=== PATIENT | female | born 1935 | race Caucasian/White ===

== ENCOUNTER 2019-09-16 08:24 | Day surgery (SDC) | payer MEDICARE, OTHER ==
[~2019-09-16 08:24] MED LIST: CEFAZOLIN SODIUM 2 GM in DEXTROSE 5%-WATER 100 ML IV PRN; SUCCINYLCHOLINE CHLORIDE INJ 200 MG/10 ML VIAL ONE
[2019-09-16 08:56] LABS: HEMATOCRIT 46.2 % (36.0-47.0); HEMOGLOBIN 15.3 g/dL (12.0-15.5); MEAN CORPUSCULAR HEMOGLOBIN 30.4 pg (27.0-33.4); MEAN CORPUSCULAR VOLUME 92 fl (80-97); PLATELET COUNT 203 10^3/uL (150-450); RED BLOOD COUNT 5.01 10^6/uL (3.72-5.28); RED CELL DISTRIBUTION WIDTH 14.8 % (11.5-14.0); WHITE BLOOD COUNT 8.3 10^3/uL (4.0-10.5)
--- NOTE | 2019-09-16 09:19 | RADIOLOGY REPORT (SQ) ---
EXAM DESCRIPTION: CHEST SINGLE VIEW COMPLETED DATE/TIME: 09/16/2019 9:08 am REASON FOR STUDY: preop COMPARISON: None. EXAM PARAMETERS: NUMBER OF VIEWS: One view. TECHNIQUE: Single frontal radiographic view of the chest acquired. RADIATION DOSE: NA LIMITATIONS: None. FINDINGS: LUNGS AND PLEURA: No opacities, masses or pneumothorax. No pleural effusion. MEDIASTINUM AND HILAR STRUCTURES: No masses. Contour normal. HEART AND VASCULAR STRUCTURES: Heart normal in size. Normal vasculature. BONES: No acute findings. HARDWARE: Cardiac loop recorder overlies the left lateral chest wall. OTHER: No other significant finding. IMPRESSION: NO ACUTE RADIOGRAPHIC FINDING IN THE CHEST. TECHNICAL DOCUMENTATION: JOB ID: [id number] [employer]- All Rights Reserved Reading location - IP/workstation name: [email or web address]
[2019-09-16 09:21] LABS: ANION GAP 12 (5-19); BLOOD UREA NITROGEN 18 mg/dL (7-20); CALCIUM 9.7 mg/dL (8.4-10.2); CARBON DIOXIDE 24 mmol/L (22-30); CHLORIDE 105 mmol/L (98-107); GLUCOSE 161 mg/dL (75-110); POTASSIUM 4.1 mmol/L (3.6-5.0)
[2019-09-16 09:26] LABS: INTERNATIONAL RATION (INR) 1.05; PROTHROMBIN TIME 13.8 SEC (11.4-15.4)
[2019-09-16 10:55] LABS: APPEARANCE,URINE SLIGHTLY-CLOUDY; BILIRUBIN,URINE NEGATIVE (NEGATIVE); COLOR,URINE YELLOW; GLUCOSE, URINE NEGATIVE (NEGATIVE); KETONES,URINE NEGATIVE (NEGATIVE); LEUKOCYTE ESTERASE,URINE NEGATIVE (NEGATIVE); NITRITE,URINE NEGATIVE (NEGATIVE); PROTEIN,URINE NEGATIVE (NEGATIVE); URINE SPECIFIC GRAVITY 1.017; UROBILINOGEN,URINE NEGATIVE mg/dL (<2.0)
[2019-09-16] MEDS ORDERED: FENTANYL CITRATE INJ/PF 100 MCG/2 ML AMPUL ONE (10:56)
[2019-09-16] MEDS ORDERED: MIDAZOLAM 2 MG/2 ML INJ ONE (10:56)
[2019-09-16] MEDS ORDERED: ONDANSETRON HCL INJ/PF 4 MG/2 ML SDV ONE ×2 (10:56→15:03)
[2019-09-16] MEDS ORDERED: DEXAMETHASONE SOD PHOSPHATE INJ 4 MG/1 ML VIAL ONE (10:56)
[2019-09-16] MEDS ORDERED: PROPOFOL INJ 200 MG/20 ML VIAL IV ONE (10:57)
[2019-09-16] MEDS ORDERED: HYDROMORPHONE HCL INJ/PF 2 MG/ML AMPULE ONE (10:57)
[2019-09-16] MEDS ORDERED: LIDOCAINE 1% INJ-PF (10 MG/ML) 30 ML SDV ONE (11:06)
[2019-09-16] MEDS ORDERED: BUPIVACAINE HCL 0.5 % INJ/PF 30 ML SDV ONE (11:06)
[2019-09-16] MEDS ORDERED: DIPHENHYDRAMINE HCL 50 MG/ML VIAL IV PRN (11:51)
[2019-09-16] MEDS ORDERED: PROMETHAZINE HCL INJ 25 MG/1 ML VIAL IV PRN (11:51)
[2019-09-16] MEDS ORDERED: MEPERIDINE HCL/PF INJ 25 MG/1 ML DISP.SYRIN IV PRN (11:51)
[2019-09-16] MEDS ORDERED: FENTANYL CITRATE INJ/PF 100 MCG/2 ML AMPUL IV PRN ×3 (11:51)
[2019-09-16] MEDS ORDERED: MORPHINE SULFATE 10 MG/ML INJ IV PRN (13:01)
[2019-09-16] MEDS ORDERED: OXYCODONE-ACETAMINOPHEN 5-325 MG TABLET PO PRN (13:01)
--- NOTE | 2019-09-16 13:02 | Discharge Summary ---
Discharge Summary (SDC) - Discharge Final Diagnosis: Left Recurrent Carpal Tunnel Syndrome/Median Neuropathy Date of Surgery: 09/16/19 Discharge Date: 09/16/19 Condition: Good Treatment or Instructions: Schedule Follow Up w/ Dr. Donovan España @ [facility] to be seen in 10-14 days or as scheduled [place]: [place]: [place]: Ice and elevate Keep splint clean/dry/intact, do not remove. If your fingers become numb please unwrap the Girish wrap but leave the splint in place, if the sensation does not return within 30 minutes please return to the emergency department. May begin finger range of motion attempting to make full fist. Please use ibuprofen (Motrin or Advil) 600-800 mg every 8 hours as needed for pain or fever DO NOT TAKE w/ TORADOL may use once TORADOL complete. You may also use acetaminophen (Tylenol) 1000 mg every 4-6 hours as needed for pain or fever. Please be aware that many medications contain acetaminophen, do not exceed a total of 1000 mg of acetaminophen every 6 hours. If ibuprofen and acetaminophen are not sufficient for your pain you may take the Percocet/[place]. Please be aware that the Percocet/[place] does contain Tylenol. Stool softener of choice when on pain medication. USE OF NWDZ-YGB-VISAVNG IBUPROFEN: Ibuprofen (Advil, Nuprin, Medipren, Motrin IB) is a medication for fever and pain control. In addition, it has anti- inflammatory effects which may be beneficial, especially in the treatment of injuries. It's best to take ibuprofen with food. Persons with ulcer disease or yomaira rgy to aspirin should notify their physician of this before taking ibuprofen. Ibuprofen can be given every four to six hours, for a total of four doses daily. Age Pain or fever dose Antiinflammatory dose 6-8 yr 200 mg (1 tab) 200 mg (1 tab) 9-11 yr 200 mg (1 tab) 200-400 mg (1-2 tab) 11-14 yr 200-400 mg (1-2 tab) 400 mg (2 tab) 15-adult 400 mg (2 tab) 600 mg (3 tab) ORAL NARCOTIC MEDICATION: You have been given a prescription for pain control. This medication is a narcotic. It's best taken with food, as nausea can result if taken on an empty stomach. Don't operate machinery or drive within six hours of taking this medication. Do not combine this medicine with alcohol, or with any medication which can cause sedation (such as cold tablets or sleeping pills) unless you get permission from the physician. Narcotics tend to cause constipation. If possible, drink plenty of fluids and eat a diet high in fiber and fruits. Please be aware that prescription narcotics also have the potential for abuse. People become addicted to these medications because of the general sense of wellbeing that they induce. This feeling along with a significant reduction in tension, anxiety, and aggression provides a stimulating seductive quality to these drugs. Once your pain is under control, we encourage you to discard your unused narcotics. Prescriptions: Oxycodone HCl/Acetaminophen [Percocet 5-325 mg Tablet] 1 tab PO Q6 PRN #25 tab PRN Reason: Discharge Diet: As Tolerated Respiratory Treatments at Home: Deep Breathing/Coughing, Incentive Spirometer Discharge Activity: No Lifting Over 10 Pounds, No Lifting/Push/Pulling Home Care Assistance: None Needed Report the Following to Your Physician Immediately: Unusual Bleeding, Redness, Swelling, Warmth, Increased Soreness, Drainage-Yellow
--- NOTE | 2019-09-16 13:11 | Operative Report ---
Operative Report DATE OF SURGERY: 09/16/19 PREOPERATIVE DIAGNOSIS: Recurrent left carpal tunnel, median neuropathy POSTOPERATIVE DIAGNOSIS: Same OPERATION: 1. Revision left carpal tunnel release with hypo-thenar fat pad transfer placement of nerve wrap. 2. Left forearm pronator release with median nerve decompression, neurolysis SURGEON: MARCI PERKINS ANESTHESIA: GA COMPLICATIONS: None ESTIMATED BLOOD LOSS: Minimal PROCEDURE: Indication for procedure: 84-year-old female who sustained a brachial plexus injury ultimately underwent open carpal tunnel release and outside facility. Unfortunately patient failed to see long-term improvement continued to have significant neuropathic symptoms on the being nerve distribution. We attempted injections along the pronator and carpal tunnel both of which did provide patient improvement and thus decision was made to proceed with operative intervention. Procedure In Detail: Patient was seen and evaluated in the preoperative holding area. The upper extremity was initialized and marked. Patient received 2g of Ancef IV for bacterial prophylaxis. Patient was taken back to the operative room where transferred to the operative table and placed under general anesthesia. Once they were adequately anesthetized a nonsterile tourniquet was placed on the upper extremity. A surgical team debriefing was performed ensuring all instrumentation was available, the surgical procedure was discussed with possible concerns reviewed. The upper extremity was prepped with chlorhexidine and alcohol and draped in a sterile fashion. A timeout was done identifying correct patient, procedure and extremity everyone in attendance agree with this and verbalized no concerns. The extremity was exsanguinated the tourniquet was inflated to 250 mmHg. S shaped skin incision was made beginning proximal laterally extending distal medially. Blunt dissection was performed. Small peripheral ranches of the lateral antebrachial cutaneous nerve were identified and protected. The superficial radial nerve and adjacent radial artery were identified. Dissection was performed radial to the radial artery to expose the pronator teres superficial insertion. Once this was identified a Z-lengthening was performed at the musculotendinous junction of the superficial head of the pronator teres. Along the proximal aspect of the incision blunt dissection was performed and thick lacertus fibrosis was identified and released. Small peripheral vein was tied off and adjacent veins were coagulated with bipolar cautery. Dissection was performed ulnar to the radial artery. Meticulous dissection was performed coagulate any small peripheral veins throughout the dissection. Deep dissection was performed until the median nerve was identified. Median nerve was then neurolysed from proximal to distal. Small group of peripheral vessels were draped over the nerve these were coagulated with bipolar cautery. The deep head of the pronator teres was identified and released. A small fibrous band of the FDS arch was identified and released as well. The branch of the FDS and AIN nerves were both identified without residual compression. Finger dissection proximally and distally was gently performed to ensure no evidence of residual fibrous bands. Previous skin incision was utilized for revision carpal tunnel release but extended proximally and distally. The median nerve was identified within the proximal aspect of the wound within normal tissue. The median nerve was then followed from a proximal to distal direction there was notable scarring to the radial leaflet of the transverse carpal ligament and at the wrist flexion crease with discoloration of the nerve at this level. The nerve was neurolysed out to the peripheral branches including the first, second and third webspace and recurrent motor branch. There was moderate flexor tenosynovitis and thus a flexor tenosynovectomy was performed. To adequately protect the nerve a hypo-thenar fat pad transfer was performed. The hypo-thenar fat was sharply dissected from the skin leaving a small layer of adipose to avoid this vascularization of the skin. The ulnar artery and nerve were identified proximally and distally including the sensory branch to the fourth and fifth digits. The fat pad was then dissected in a ulnar direction until the palmaris brevis muscle was identified. Dissection was then performed deeply until adequate excursion of the adipose flap was obtained. The ulnar leaflet of the transverse carpal ligament was excised. Wound was copiously irrigated with normal saline. A [place] 12 mm x 5 cm nerve wrap was placed around the median nerve. 3 horizontal mattress sutures were placed into the radial leaflet of the transverse carpal ligament to secure the hypo-thenar fat pad transfer. Tourniquet was deflated. Any peripheral veins were coagulated with bipolar cautery until the wound was dry. Wound was copiously irrigated with normal saline. Subcutaneous tissues were closed with 4-0 Monocryl suture. Skin was closed with 4-0 nylon horizontal mattress sutures. 20 cc of 0.5% bupivacaine without epinephrine was injected for postoperative pain control. Wound was dressed Xeroform 4 x 4's and patient was placed in a volar resting splint. Sponge counts, instrument counts, needle counts were correct. Patient was then awoken from anesthesia. Transferred from the operating room table to the operating room stretcher. There was no intraoperative complications patient tolerated procedure well stable to PACU. Postop plan: Patient follow-up the office in 2 weeks for wound check. Patient will begin occupational therapy 2 weeks postoperatively.
--- NOTE | 2019-09-16 14:29 | EKG REPORT ---
SEVERITY:- ABNORMAL ECG - SINUS RHYTHM ABNORMAL T, CONSIDER ISCHEMIA, LATERAL LEADS : Confirmed by: Joanna Bridges MD 16-Sep-2019 14:28:54
[2019-09-16] MEDS ORDERED: ONDANSETRON HCL INJ/PF 4 MG/2 ML SDV IV ONE (15:00)
[2019-09-16 18:02] VITALS: BP 144/77
== END 2019-09-16 17:35 | disposition home or self-care (01) ==
LOC: OROUT 08:24
PROVIDERS: ATTEND Orthopaedic Surgery
DX: G56.12 Other lesions of median nerve, left upper limb (principal); M79.642 Pain in left hand; I48.91 Unspecified atrial fibrillation; E66.3 Overweight; I10 Essential (primary) hypertension; Z88.2 Allergy status to sulfonamides; Z88.1 Allergy status to other antibiotic agents; Z79.01 Long term (current) use of anticoagulants; Z79.899 Other long term (current) drug therapy; Z87.891 Personal history of nicotine dependence; Z85.42 Personal history of malignant neoplasm of other parts of uterus
CPT/HCPCS: 36415; 85027; 85610; 85730; 80048; 81001; 71045; 93005; 93010; 01810; 64721; 64718; 14040; J2250; J3490; J0690; J3010; J1170; J0330; J2405; J7060; J2704; 1810; J1100